=== PATIENT | male | born 1980 | race Caucasian/White ===

== ENCOUNTER 2020-03-21 02:52 | Emergency (ER) | payer OTHER ==
[2020-03-21 03:34] LABS: APPEARANCE,URINE CLOUDY; BILIRUBIN,URINE NEGATIVE (NEGATIVE); COLOR,URINE YELLOW; GLUCOSE, URINE NEGATIVE (NEGATIVE); KETONES,URINE TRACE mg/dL (NEGATIVE); LEUKOCYTE ESTERASE,URINE NEGATIVE (NEGATIVE); NITRITE,URINE NEGATIVE (NEGATIVE); PROTEIN,URINE NEGATIVE (NEGATIVE); URINE SPECIFIC GRAVITY 1.017
[2020-03-21 04:39] LABS: ABSOLUTE LYMPHOCYTES (AUTO) 0.9 10^3/uL (0.5-4.7); ABSOLUTE MONOCYTES (AUTO) 0.5 10^3/uL (0.1-1.4); ABSOLUTE NEUT (AUTO) 9.7 10^3/uL (1.7-8.2); BASOPHILS % (AUTO) 0.3 % (0-2); EOSINOPHILS % (AUTO) 0.2 % (0-6); HEMOGLOBIN 14.8 g/dL (13.5-17.0); LYMPHOCYTES % (AUTO) 8.1 % (13-45); MEAN CORPUSCULAR HEMOGLOBIN 32.7 pg (27.0-33.4); MEAN CORPUSCULAR HGB CONC 35.2 g/dL (32.0-36.0); MEAN CORPUSCULAR VOLUME 93 fl (80-97); MONOCYTES % (AUTO) 4.6 % (3-13); PLATELET COUNT 235 10^3/uL (150-450); RED BLOOD COUNT 4.52 10^6/uL (4.35-5.55); RED CELL DISTRIBUTION WIDTH 13.4 % (11.5-14.0); SEGMENTED NEUTROPHILS % (AUTO) 86.8 % (42-78); TOTAL CELLS COUNTED % (AUTO) 100 %; WHITE BLOOD COUNT 11.1 10^3/uL (4.0-10.5)
[2020-03-21 04:58] LABS: ALBUMIN 4.8 g/dL (3.5-5.0); ALKALINE PHOSPHATASE 74 U/L (38-126); ANION GAP 7 (5-19); ASPARTATE AMINO TRANSFERASE 22 U/L (17-59); BILIRUBIN,DIRECT 0.1 mg/dL (0.0-0.4); BILIRUBIN,TOTAL 0.9 mg/dL (0.2-1.3); BLOOD UREA NITROGEN 13 mg/dL (7-20); CALCIUM 9.7 mg/dL (8.4-10.2); CARBON DIOXIDE 31 mmol/L (22-30); CHLORIDE 102 mmol/L (98-107); GLUCOSE 103 mg/dL (75-110); POTASSIUM 4.2 mmol/L (3.6-5.0); TOTAL PROTEIN 7.8 g/dL (6.3-8.2)
--- NOTE | 2020-03-21 05:02 | ER Document Report ---
ED GI/ - General Chief Complaint: Abdominal Pain Stated Complaint: ABDOMINAL PAIN Time Seen by Provider: 03/21/20 04:47 Primary Care Provider: AVTAR HARMON PA-C [Primary Care Provider] - Follow up as needed CORA ADEN MD [ACTIVE STAFF] - Follow up as needed Mode of Arrival: Wheelchair Information source: Patient Notes: 39-year-old male with no previous medical problems presents to the emergency room complaining of worsening abdominal pain and cramping that started last night. Patient states he has been having "GI issues" since September. States is usually worse in the evening is intermittent decreased appetite states he finally established with a primary care physician last week who has ordered some labs which she states are still pending. He denies any fevers, no urinary symptoms. No diarrhea. No COVID-19 exposure. Has been using [id number] antacids with minimal relief. Does state that spicy foods seem to aggravate his symptoms. TRAVEL OUTSIDE OF THE [place] IN LAST 30 DAYS: No Past Medical History - General Information source: Patient - Social History Smoking Status: Never Smoker Frequency of alcohol use: None Drug Abuse: None Family History: Reviewed & Not Pertinent Review of Systems - Review of Systems Constitutional: No symptoms reported EENT: No symptoms reported Cardiovascular: No symptoms reported Respiratory: No symptoms reported Gastrointestinal: Abdominal pain, Nausea. denies: Diarrhea, Vomiting, Constipation Male Genitourinary: No symptoms reported Musculoskeletal: No symptoms reported Skin: No symptoms reported Neurological/Psychological: No symptoms reported -: Yes All other systems reviewed and negative Physical Exam - Vital signs Vitals: Temp Pulse Resp BP Pulse Ox 97.3 F 75 18 100/78 100 03/21/20 03:01 03/21/20 03:01 03/21/20 03:01 03/21/20 03:01 03/21/20 03:01 - General General appearance: Appears well, Alert In distress: Mild - HEENT Head: Normocephalic, Atraumatic Eyes: Normal Pupils: PERRL - Respiratory Respiratory status: No respiratory distress Chest status: Nontender Breath sounds: Normal Chest palpation: Normal - Cardiovascular Rhythm: Regular Heart sounds: Normal auscultation Murmur: No - Abdominal Inspection: Normal Distension: No distension Bowel sounds: Normal Tenderness: Nontender. No: McBurney's point, Varela's sign, Guarding Organomegaly: No organomegaly - Back Back: Normal, Nontender. No: CVA tenderness - Neurological Neuro grossly intact: Yes Cognition: Normal Orientation: AAOx4 [place] Coma Scale Eye Opening: Spontaneous Miguel Coma Scale Verbal: Oriented Miguel Coma Scale Motor: Obeys Commands [place] Coma Scale Total: 15 Speech: Normal Motor strength normal: LUE, RUE, LLE, RLE Sensory: Normal - Skin Skin Temperature: Warm Skin Moisture: Dry Skin Color: Normal Course - Re-evaluation Re-evalutation: 03/21/20 05:03 Patient is resting comfortably with decreased pain. Reviewed lab results with patient. CT abdomen pelvis IV contrast ordered. 03/21/20 06:25 Reviewed all test results with patient, staffed with my attending Dr. Weathers who recommends right upper quadrant ultrasound to confirm acute cholecystitis that w as documented on the CT. Patient remains pain-free, afebrile, stable labs. Patient is agreeable to have the ultrasound done. 03/21/20 07:38 Patient remains pain-free, pain-free on exam. Ultrasound was reviewed with patient. Case was staffed with my ED attending Dr. Weathers who agrees with plan for outpatient follow-up with general surgery discharge patient home. Discussed with patient need for outpatient follow-up with general surgery due to acute cholecystitis and cholelithiasis. He was counseled on diet restrictions avoid greasy food, fried food, no heavy sauces. He will be provided with on-call physician. Patient was given strict return to the emergency room guidelines. Return for any new or worsening symptoms. All questions were answered. Patient verbalized understanding and agrees with plan of care. 03/21/20 07:49 - Vital Signs Vital signs: Temp Pulse Resp BP Pulse Ox 98.1 F 79 18 106/73 98 03/21/20 06:16 03/21/20 06:16 03/21/20 06:16 03/21/20 06:16 03/21/20 06:16 - Laboratory Results Result Diagrams: 03/21/20 04:17 03/21/20 04:17 Laboratory Results Interpreted: 03/21/20 03/21/20 03/21/20 03:08 04:17 04:17 WBC 11.1 H Lymph % (Auto) 8.1 L Absolute Neuts (auto) 9.7 H Seg Neutrophils % 86.8 H Carbon Dioxide 31 H Urine Ketones TRACE H Urine Urobilinogen 4.0 H Critical Laboratory Results Reviewed: No Critical Results - Radiology Results Critical Radiology Results Reviewed: No Critical Results Discharge - Discharge Clinical Impression: Acute cholecystitis Condition: Stable Disposition: HOME, SELF-CARE Instructions: Gallbladder Disease ([facility]), Low-Fat Diet ([facility]) Additional Instructions: Avoid greasy foods, spicy foods, heavy sauces, fried foods. Outpatient follow- up with general surgery as discussed. Return to the emergency room for any new or worsening symptoms. Referrals: AVTAR HARMON PA-C [Primary Care Provider] - Follow up as needed CORA ADEN MD [ACTIVE STAFF] - Follow up as needed
--- NOTE | 2020-03-21 05:51 | RADIOLOGY REPORT (SQ) ---
CLINICAL HISTORY: abdominal pain COMPARISON: None. TECHNIQUE: CT ABDOMEN PELVIS WITH IV CONTRAST on 03/21/2020 5:02 AM CARDIOLOGY NURSE This exam was performed according to our departmental dose-optimization program, which includes automated exposure control, adjustment of the mA and/or kV according to patient size and/or use of iterative reconstruction technique. FINDINGS: Lower lungs are clear. Abdomen: The liver is normal in appearance. There is no biliary dilatation. The gallbladder wall is thickened measuring up to 7 mm. The pancreas and spleen are normal in appearance. The adrenal glands and kidneys are unremarkable. Abdominal aorta is normal in course and caliber without aneurysm. There is no free air. There is no retroperitoneal adenopathy. Pelvis: There is mild diverticulosis of the distal colon. Urinary bladder is unremarkable. There is no free fluid. Appendix is normal. Skeleton: There are no acute osseous findings. No suspicious bony lesions. IMPRESSION: Suspect acute cholecystitis.
[2020-03-21 06:16] VITALS: BP 106/73
--- NOTE | 2020-03-21 07:33 | RADIOLOGY REPORT (SQ) ---
Ultrasound of the right upper quadrant of the abdomen: 03/21/2020 6:30 AM FRANCHISE CONSULTANT Technique: Multiple grayscale color Doppler images of the right upper quadrant of the abdomen were obtained. Comparison: CT of abdomen and pelvis from 03/21/2020 History: 39-year old patient with right upper quadrant abdominal pain. Findings: The visualized portions of the hepatic parenchyma appears normal. There is normal direction of flow seen in the main portal vein. There is nonspecific gallbladder wall thickening with sludge and punctate cholelithiasis present. Trace pericholecystic fluid is also seen. Sonographic Varela's sign was negative. The common duct measures 3-4 mm. The right kidney measures up to 10.8 cm in length. The right kidney demonstrates normal cortical echogenicity with no evidence to suggest hydronephrosis. The visualized portions of the IVC, abdominal aorta, and pancreatic head appear normal. No free intraperitoneal fluid is seen. Impression: There is nonspecific gallbladder wall thickening with cholelithiasis and sludge present. Trace pericholecystic fluid is present. This could represent acute cholecystitis in the appropriate clinical setting.
== END 2020-03-21 07:53 | disposition home or self-care (01) ==
LOC: ER 02:52
DX: K81.0 Acute cholecystitis (principal); R10.9 Unspecified abdominal pain; R11.0 Nausea
CPT/HCPCS: 36415; 74177; 76705; 80053; 81001; 83690; 85025; 93976; 99285

== ENCOUNTER 2020-04-01 11:03 | Emergency (ER) | payer OTHER ==
[2020-04-01 12:17] LABS: ABSOLUTE EOSINOPHILS # (AUTO) 0.2 10^3/uL (0.0-0.6); ABSOLUTE LYMPHOCYTES (AUTO) 1.3 10^3/uL (0.5-4.7); ABSOLUTE MONOCYTES (AUTO) 0.5 10^3/uL (0.1-1.4); ABSOLUTE NEUT (AUTO) 3.1 10^3/uL (1.7-8.2); BASOPHILS % (AUTO) 0.7 % (0-2); EOSINOPHILS % (AUTO) 3.3 % (0-6); HEMATOCRIT 36.3 % (37.9-51.0); HEMOGLOBIN 13.2 g/dL (13.5-17.0); MEAN CORPUSCULAR HEMOGLOBIN 33.4 pg (27.0-33.4); MEAN CORPUSCULAR HGB CONC 36.3 g/dL (32.0-36.0); MEAN CORPUSCULAR VOLUME 92 fl (80-97); MONOCYTES % (AUTO) 9.1 % (3-13); PLATELET COUNT 197 10^3/uL (150-450); RED BLOOD COUNT 3.95 10^6/uL (4.35-5.55); RED CELL DISTRIBUTION WIDTH 13.2 % (11.5-14.0); SEGMENTED NEUTROPHILS % (AUTO) 61.9 % (42-78); TOTAL CELLS COUNTED % (AUTO) 100 %; WHITE BLOOD COUNT 5.1 10^3/uL (4.0-10.5)
--- NOTE | 2020-04-01 12:17 | EKG REPORT ---
SEVERITY:- BORDERLINE ECG - SINUS RHYTHM EARLY PRECORDIAL TRANSITION, ? ETIOLOGY : Confirmed by: Fransisco Sow MD 01-Apr-2020 12:16:22
[2020-04-01 12:23] LABS: ALBUMIN 3.7 g/dL (3.5-5.0); ALKALINE PHOSPHATASE 55 U/L (38-126); ANION GAP 5 (5-19); ASPARTATE AMINO TRANSFERASE 23 U/L (17-59); BILIRUBIN,DIRECT 0.3 mg/dL (0.0-0.4); BILIRUBIN,TOTAL 0.9 mg/dL (0.2-1.3); BLOOD UREA NITROGEN 15 mg/dL (7-20); CALCIUM 8.8 mg/dL (8.4-10.2); CARBON DIOXIDE 27 mmol/L (22-30); CHLORIDE 104 mmol/L (98-107); CREATINE KINASE 28 U/L (55-170); GLUCOSE 117 mg/dL (75-110); POTASSIUM 4.1 mmol/L (3.6-5.0); TOTAL PROTEIN 6.5 g/dL (6.3-8.2)
[2020-04-01 12:58] LABS: APPEARANCE,URINE CLEAR; BILIRUBIN,URINE NEGATIVE (NEGATIVE); COLOR,URINE YELLOW; GLUCOSE, URINE NEGATIVE (NEGATIVE); KETONES,URINE NEGATIVE (NEGATIVE); LEUKOCYTE ESTERASE,URINE NEGATIVE (NEGATIVE); NITRITE,URINE NEGATIVE (NEGATIVE); PROTEIN,URINE NEGATIVE (NEGATIVE); UROBILINOGEN,URINE NEGATIVE mg/dL (<2.0)
[2020-04-01] MEDS ORDERED: DEXTROSE 5%-LACTATED RINGERS 1,000 ML IV ONE (12:58)
[2020-04-01 15:00] VITALS: BP 134/68
--- NOTE | 2020-04-01 18:52 | ER Document Report ---
Entered by FAUSTO ZALDIVAR SCRIBE 04/01/20 1156 Acting as scribe for:CHRISTIANO HANNA MD ED General - General Chief Complaint: Near Syncope Stated Complaint: POSSIBLE SYNCOPE Time Seen by Provider: 04/01/20 11:08 Mode of Arrival: Ambulatory Information source: Patient Notes: This 39-year-old male patient comes emergency room complaining of syncopal episode. He reports he was driving to work when he developed dizziness with blurry vision. He also had felt a tingling sensation from head to toes. Once at work, he developed tingling, weakness, headache, he was sitting down and got hot and sweaty reporting waves of sweats. He then woke up on the floor. His father had helped him to the floor. He reviewed the incident on video from his security cameras at work. This is never happened before. At this time he does feel better. Past medical history is significant for a laparoscopic cholecystectomy on 03/22/2020. Today was his first day back to work. TRAVEL OUTSIDE OF THE [place] IN LAST 30 DAYS: No - Related Data Allergies/Adverse Reactions: shrimp Allergy (Mild, Verified 04/01/20 11:33) Home Medications: omprazole. pepcid. zyrtec Past Medical History - General Information source: Patient - Social History Smoking Status: Never Smoker Cigarette use (# per day): No Frequency of alcohol use: None Drug Abuse: None Lives with: Family Family History: Reviewed & Not Pertinent GI Medical History: Reports: Hx Gastroesophageal Reflux Disease Past Surgical History: Reports: Hx Cholecystectomy, Hx Oral Surgery, Hx Tonsillectomy Review of Systems - Review of Systems Constitutional: See HPI, Diaphoresis EENT: See HPI, Blurred vision Cardiovascular: See HPI, Syncope Respiratory: No symptoms reported Gastrointestinal: No symptoms reported Genitourinary: No symptoms reported Male Genitourinary: No symptoms reported Musculoskeletal: No symptoms reported Skin: No symptoms reported Hematologic/Lymphatic: No symptoms reported Neurological/Psychological: See HPI, Headaches, Tingling -: Yes All other systems reviewed and negative Physical Exam - Vital signs Vitals: Resp Pulse Ox 19 100 04/01/20 11:08 04/01/20 11:08 - Notes Notes: Physical Exam: General: Alert, appears well. HEENT: Normocephalic. Atraumatic. PERRL. Extraocular movements intact. Oropharynx clear. Minimal left lateral gaze nystagmus. Rapid head movement does not elicit dizziness. Neck: Supple. Non-tender. Respiratory: No respiratory distress. Clear and equal breath sounds bilaterally. Cardiovascular: Regular rate and rhythm. Abdominal: Normal Inspection. Non-tender. No distension. Normal Bowel Sounds. Back: No gross abnormalities. Extremities: Moves all four extremities. Upper extremities: Normal inspection. Normal ROM. Lower extremities: Normal inspection. No edema. Normal ROM. Neurological: Normal cognition. AAOx4. Normal speech. Psychological: Normal affect. Normal Mood. Skin: Warm. Dry. Normal color. Course - Vital Signs Vital signs: Temp Pulse Resp BP Pulse Ox 98.0 F 83 17 134/68 H 99 04/01/20 11:09 04/01/20 12:12 04/01/20 14:01 04/01/20 14:01 04/01/20 14:01 - Laboratory Results Result Diagrams: 04/01/20 11:17 04/01/20 11:17 Laboratory Results Interpreted: 04/01/20 04/01/20 11:17 11:17 RBC 3.95 L Hgb 13.2 L Hct 36.3 L MCHC 36.3 H Sodium 136.4 L Glucose 117 H Creatine Kinase 28 L Critical Laboratory Results Reviewed: No Critical Results - Radiology Results Critical Radiology Results Reviewed: No Critical Results - EKG Interpretation by Me EKG shows normal: Sinus rhythm, [place], Intervals, ST-T Waves. abnormal: QRS Complexes - Early precordial transition Rate: Normal - 77 Rhythm: NSR Discharge - Discharge Clinical Impression: Vasovagal syncope Condition: Stable Disposition: HOME, SELF-CARE Additional Instructions: Vasovagal Symptoms Your symptoms seem to be due to a fall in blood pressure, caused by the interaction of your nervous system with your circulatory system. This can result in abnormally slow pulse rate, faintness, abnormal sensations, low blood pressure, difficulty with vision, or fainting (syncope). Vasovagal symptoms may be brought on by emotional distress, pain, dehydration, bleeding, or medication effects. Often, no cause can be identified. Your exam has revealed no signs of a serious problem. Usually, no further tests are required. However, if further workup has been recommended it's important that you follow up as instructed. Should you feel lightheaded or "about to faint," you should sit or lie down as quickly as possible. The episode will usually pass. Recurring symptoms will require further evaluation to determine the cause. Call the physician if you develop severe prolonged dizziness, headache, chest pain, shortness of breath, or other new symptoms. Drink plenty of fluids throughout the day in the evening. Get plenty of rest. Do not drive, climb ladders, or other activities that put you at risk of injury if you have another fainting episode. Follow-up with your primary care provider for further evaluation if you have additional episodes of fainting or near fainting or any other symptoms. RETURN TO THE EMERGENCY ROOM IF ANY NEW OR WORSENING SYMPTOMS. I personally performed the services described in the documentation, reviewed and edited the documentation which was dictated to the scribe in my presence, and it accurately records my words and actions.
== END 2020-04-01 15:08 | disposition home or self-care (01) ==
LOC: ER 11:03
DX: R55 Syncope and collapse (principal); R42 Dizziness and giddiness; H53.8 Other visual disturbances; R53.1 Weakness; R20.0 Anesthesia of skin; R51.9 Headache, unspecified; R61 Generalized hyperhidrosis; Z90.49 Acquired absence of other specified parts of digestive tract; Z79.899 Other long term (current) drug therapy
CPT/HCPCS: 93005; 99284; 36415; 82550; 85025; 80053; 81001; 84484; 85379; 93010; J7121

== ENCOUNTER 2020-04-03 20:09 | Emergency (ER) | payer OTHER ==
--- NOTE | 2020-04-03 20:29 | ER Document Report ---
ED Medical Screen (RME) - General Chief Complaint: Abdominal Pain Stated Complaint: ABDOMINAL PAIN, SENSITIVE TO TOUCH Time Seen by Provider: 04/03/20 20:26 Notes: HPI: 39-year-old male recent cholecystectomy on March [address] Vaibhav chu with 2 days of nausea increasing sensitivity and discomfort in the mid abdomen. No definite fevers. Called his teledoctor today and was referred into the emergency department for evaluation PHYSICAL EXAMINATION: Surgical scars are intact without redness or drainage. Mild tenderness through the mid abdomen on palpation I have greeted and performed a rapid initial assessment of this patient. A comprehensive ED assessment and evaluation of the patient, analysis of test results and completion of medical decision making process will be conducted by an additional ED providers. Please note that clinical decision making for this patient was made during the 2019 pandemic of novel coronavirus which caused a significant strain on the healthcare system including at this particular facility. Criteria for admission discharge and level of care decisions as well as treatment decisions have necessarily changed TRAVEL OUTSIDE OF THE [place] IN LAST 30 DAYS: No - Related Data Allergies/Adverse Reactions: shrimp Allergy (Mild, Verified 04/01/20 11:33) Home Medications: omeprazole, pepsid, zertec Past Medical History - Social History Frequency of alcohol use: None Drug Abuse: None GI Medical History: Reports: Hx Gastroesophageal Reflux Disease Psychiatric Medical History: Denies: Hx Depression Past Surgical History: Reports: Hx Cholecystectomy, Hx Oral Surgery, Hx Tonsillectomy Physical Exam - Vital signs Vitals: Temp Pulse Resp BP Pulse Ox 97.9 F 63 16 118/77 99 04/03/20 20:17 04/03/20 20:17 04/03/20 20:17 04/03/20 20:17 04/03/20 20:17 Course - Vital Signs Vital signs: Temp Pulse Resp BP Pulse Ox 97.9 F 63 16 118/77 99 04/03/20 20:17 04/03/20 20:17 04/03/20 20:17 04/03/20 20:17 04/03/20 20:17
[2020-04-03] MEDS ORDERED: ONDANSETRON HCL INJ/PF 4 MG/2 ML SDV IV ONE (21:33)
[2020-04-03] MEDS ORDERED: NORMAL SALINE 1000 ML 1,000 ML IV ONE (21:33)
[2020-04-03 21:37] LABS: ABSOLUTE EOSINOPHILS # (AUTO) 0.2 10^3/uL (0.0-0.6); ABSOLUTE MONOCYTES (AUTO) 0.6 10^3/uL (0.1-1.4); ABSOLUTE NEUT (AUTO) 3.7 10^3/uL (1.7-8.2); BASOPHILS % (AUTO) 0.7 % (0-2); EOSINOPHILS % (AUTO) 2.4 % (0-6); HEMATOCRIT 37.7 % (37.9-51.0); HEMOGLOBIN 13.7 g/dL (13.5-17.0); LYMPHOCYTES % (AUTO) 30.6 % (13-45); MEAN CORPUSCULAR HEMOGLOBIN 33.8 pg (27.0-33.4); MEAN CORPUSCULAR HGB CONC 36.2 g/dL (32.0-36.0); MEAN CORPUSCULAR VOLUME 93 fl (80-97); MONOCYTES % (AUTO) 9.7 % (3-13); PLATELET COUNT 213 10^3/uL (150-450); RED BLOOD COUNT 4.04 10^6/uL (4.35-5.55); RED CELL DISTRIBUTION WIDTH 13.4 % (11.5-14.0); SEGMENTED NEUTROPHILS % (AUTO) 56.6 % (42-78); TOTAL CELLS COUNTED % (AUTO) 100 %; WHITE BLOOD COUNT 6.6 10^3/uL (4.0-10.5)
--- NOTE | 2020-04-03 21:41 | ER Document Report ---
Entered by FAUSTO ZALDIVAR SCRIBE 04/03/202129 Acting as scribe for:GUERLINE ASHFORD IV, MD ED GI/ - General Chief Complaint: Abdominal Pain Stated Complaint: ABDOMINAL PAIN, SENSITIVE TO TOUCH Time Seen by Provider: 04/03/20 20:26 Primary Care Provider: AVTAR HARMON PA-C [Primary Care Provider] - Follow up as needed Mode of Arrival: Ambulatory Information source: Patient Notes: This 39 year old male patient presents to the emergency department today with complaints of RUQ "sensitivity". Patient had a laparoscopic cholecystectomy on 03/21/2020. He was seen here 2 days ago for syncope that was thought to be due to poor fluid intake. Patient states he has been trying to drink more fluids and has not had any more syncopal events. Patient reports that he did not have any of this pain until yesterday and it "feels like a sunburn". He also complains of severe nausea without vomiting. TRAVEL OUTSIDE OF THE [place] IN LAST 30 DAYS: No - Related Data Allergies/Adverse Reactions: shrimp Allergy (Mild, Verified 04/01/20 11:33) Home Medications: omeprazole, pepsid, zertec Past Medical History - General Information source: Patient - Social History Smoking Status: Never Smoker Cigarette use (# per day): No Frequency of alcohol use: None Drug Abuse: None Lives with: Family Family History: Reviewed & Not Pertinent Patient has homicidal ideation: No GI Medical History: Reports: Hx Gastroesophageal Reflux Disease Past Surgical History: Reports: Hx Cholecystectomy, Hx Oral Surgery, Hx Tonsillectomy Review of Systems - Review of Systems Constitutional: No symptoms reported EENT: No symptoms reported Cardiovascular: denies: Syncope Respiratory: No symptoms reported Gastrointestinal: See HPI, Abdominal pain, Nausea Genitourinary: No symptoms reported Male Genitourinary: No symptoms reported Musculoskeletal: No symptoms reported Skin: No symptoms reported Hematologic/Lymphatic: No symptoms reported Neurological/Psychological: No symptoms reported -: Yes All other systems reviewed and negative Physical Exam - Vital signs Vitals: Temp Pulse Resp BP Pulse Ox 97.9 F 63 16 118/77 99 04/03/20 20:17 04/03/20 20:17 04/03/20 20:17 04/03/20 20:17 04/03/20 20:17 - Notes Notes: Physical Exam: General: Alert, appears well. HEENT: Normocephalic. Atraumatic. PERRL. Extraocular movements intact. Oropharynx clear. Neck: Supple. Non-tender. Respiratory: No respiratory distress. Clear and equal breath sounds bilaterally. Cardiovascular: Regular rate and rhythm. Abdominal: Tenderness to light palpation of the RUQ, no peritoneal signs. No distension. Normal Bowel Sounds. Back: No gross abnormalities. Extremities: Moves all four extremities. Upper extremities: Normal inspection. Normal ROM. Lower extremities: Normal inspection. No edema. Normal ROM. Neurological: Normal cognition. AAOx4. Normal speech. Psychological: Normal affect. Normal Mood. Skin: Warm. Dry. Normal color. Course - Re-evaluation Re-evalutation: 04/03/20 23:19 Differential diagnosis: Postop pain, biloma, postop infection, peritonitis 04/04/20 00:06 MDM: Based on the patient's history, exam, laboratory findings and CT scan findings, I believe the patient is just experiencing some typical postoperative discomfort that is not unexpected. Diagnosis, discharge medications and diet as well as follow-up discussed with patient and patient's . Findings of ED MSE discussed with patient and patient's . All questions were answered prior to discharge. Emergency signs and symptoms, reasons to return to the emergency department discussed with patient and patient's . - Vital Signs Vital signs: Temp Pulse Resp BP Pulse Ox 97.9 F 63 16 118/77 99 04/03/20 20:17 04/03/20 20:17 04/03/20 20:17 04/03/20 20:17 04/03/20 20:17 - Laboratory Results Result Diagrams: 04/03/20 21:20 04/03/20 21:20 Laboratory Results Interpreted: 04/03/20 21:20 RBC 4.04 L Hct 37.7 L MCH 33.8 H MCHC 36.2 H Critical Laboratory Results Reviewed: No Critical Results Attending or Supervising Physician who Reviewed Labs: GUERLINE ASHFORD IV - Radiology Results Critical Radiology Results Reviewed: No Critical Results Attending or Supervising Physician who Reviewed Radiology: GUERLINE ASHFORD IV Discharge - Discharge Clinical Impression: Postoperative pain Condition: Stable Disposition: HOME, SELF-CARE Additional Instructions: Return to the Emergency Department without delay if any worse. HOME CARE INSTRUCTIONS & INFORMATION: Thank you for choosing us for your medical needs. We hope you're satisfied with the care you received. After you leave, you must properly care for your problem and, at the same time, observe its progress. Any condition can change. Some illnesses can change rapidly over hours or days. If your condition worsens, return to the Emergency Department or see your physician promptly. ABOUT YOUR X-RAYS AND EKG'S: If you had an EKG or X-rays taken, they have been read by the Emergency Physician. The X-rays and EKG's will also be read by a R adiologist or Meat Apprentice within 24 hours. If discrepancies are noted, you will be notified by telephone. Please be certain the ED has a correct telephone number & address where you can be reached. Also, realize that some fractures or abnormalities do not show up on initial X-rays. If your symptoms continue, see your physician. ABOUT YOUR LABORATORY TEST: If you had laboratory tests, the results have been reviewed by the Emergency Physician. Some test results (for example cultures) may not be available for several days. You will be contacted if any test result shows you need additional treatment. Please be certain the ED has a correct telephone number and address where you can be reached. ABOUT YOUR MEDICATIONS: You will receive instructions on how to take your medicine on the prescription label you receive. Additional information may be provided by the Pharmacy. If you have questions afterwards, call the ED for clarification or further instructions. Some prescribed medications may cause drowsiness. Do not perform tasks such as driving a car or operating machinery without consulting your Pharmacist. If you feel you need a refill of pain medication, your condition will need re-evaluation. Please do not call for a refill of any medication. ABOUT YOUR SIGNATURE: Signature of this document acknowledges to followin. Understanding that you received emergency treatment and that you may be released before al medical problems are known or treated. Please be certain the ED has a correct phone number & address where you can be reached. 2. Acknowledgement that you will arrange for follow-up care as recommended. 3. Authorization for the Emergency Physician to provide information to your follow-up Physician in order to maximize your care. AT ANY TIME, IF YOUR SYMPTOMS CHANGE SIGNIFICANTLY OR WORSEN OR YOU DEVELOP NEW SYMPTOMS, RETURN TO THE EMERGENCY DEPARTMENT IMMEDIATELY FOR RE-EVALUATION. OUR GOAL IS TO PROVIDE EXCELLENT MEDICAL CARE! WE HOPE THAT WE HAVE MET YOUR EXPECTATIONS DURING YOUR EMERGENCY DEPARTMENT VISIT AND THAT YOU FEEL YOU HAVE RECEIVED EXCELLENT CARE! Prescriptions: Ondansetron [Zofran Odt 4 mg Tablet] 2 tab PO Q8H PRN #[id number] tab.rapdis PRN Reason: For Nausea/Vomiting Referrals: AISLINN GALVAN MD [ACTIVE STAFF] - 04/06/20 (Follow up with Dr. Galvan as scheduled) I personally performed the services described in the documentation, reviewed and edited the documentation which was dictated to the scribe in my presence, and it accurately records my words and actions.
[2020-04-03 22:10] LABS: ALBUMIN 3.9 g/dL (3.5-5.0); ALKALINE PHOSPHATASE 59 U/L (38-126); ANION GAP 7 (5-19); ASPARTATE AMINO TRANSFERASE 18 U/L (17-59); BILIRUBIN,DIRECT 0.2 mg/dL (0.0-0.4); BILIRUBIN,TOTAL 0.9 mg/dL (0.2-1.3); BLOOD UREA NITROGEN 10 mg/dL (7-20); CALCIUM 9.1 mg/dL (8.4-10.2); CARBON DIOXIDE 29 mmol/L (22-30); CHLORIDE 103 mmol/L (98-107); GLUCOSE 93 mg/dL (75-110); TOTAL PROTEIN 6.4 g/dL (6.3-8.2)
[2020-04-03 23:01] LABS: APPEARANCE,URINE CLEAR; BILIRUBIN,URINE NEGATIVE (NEGATIVE); COLOR,URINE YELLOW; GLUCOSE, URINE NEGATIVE (NEGATIVE); KETONES,URINE NEGATIVE (NEGATIVE); LEUKOCYTE ESTERASE,URINE NEGATIVE (NEGATIVE); NITRITE,URINE NEGATIVE (NEGATIVE); PROTEIN,URINE NEGATIVE (NEGATIVE); URINE SPECIFIC GRAVITY 1.009; UROBILINOGEN,URINE NEGATIVE mg/dL (<2.0)
--- NOTE | 2020-04-03 23:51 | RADIOLOGY REPORT (SQ) ---
EXAM DESCRIPTION: CT ABDOMEN PELVIS WITH IV CONTRAST COMPLETED DATE/TME: 04/03/2020 23:10 CLINICAL HISTORY: 39 years, Male, mid abd pain recent michael EXAM DESCRIPTION: CT ABD/PELVIS WITH IV ORAL CLINICAL HISTORY: mid abd pain recent michael COMPARISON: None Available TECHNIQUE: Contiguous axial images of the abdomen and pelvis were obtained after the administration of intravenous contrast followed by reconstruction images.This exam was performed according to our departmental dose-optimization program, which includes automated exposure control, adjustment of the mA and/or kV according to patient size and/or use of iterative reconstruction technique. FINDINGS: The liver, spleen, pancreas and kidneys are within normal limits. There is no hydronephrosis. The gallbladder is surgically absent. There is no evidence of postsurgical complication. Adrenal glands are within normal limits. Aorta is normal in caliber and tapering. No significant free fluid. No free air. No bowel obstruction. There is no stranding of the mesenteric fat. The appendix appears normal. No evidence of periappendiceal inflammation. IMPRESSION: No acute intra-abdominal abnormality
[2020-04-04] MEDS ORDERED: ONDANSETRON ODT 4 MG TAB (6 TAB/ER DISP) PO PRN (00:06)
[2020-04-04 00:12] VITALS: BP 116/79
--- OUTSIDE RECORDS SUMMARY | 2020-04-06 10:38 | XMS REPORT ---
:1980 Author [facility] Address [facility] [address] [place] [id number] Care Team Providers Name Role Phone Unavailable Unavailable Unavailable Allergies, Adverse Reactions, Alerts This patient has no known allergies or adverse reactions. Medications This patient has no known medications. Problems This patient has no known problems. Procedures This patient has no known procedures. Results Test Description Test Time Test Comments Text Results Atomic Results Result Comments CBC WITH DIFFERENTIAL/PLATELET Test Item Value Reference Range Comments WBC (test code = 6690-2) 6.1 X10E3/UL 3.4-10.8 RBC (test code = 789-8) 4.45 X10E6/UL 4.14-5.80 HEMOGLOBIN (test code = 718-7) 14.9 G/DL 13.0-17.7 HEMATOCRIT (test code = 4544-3) 43.5 % 37.5-51.0 MCV (test code = 787-2) 98 FL 79-97 MCH (test code = 785-6) 33.5 PG 26.6-33.0 MCHC (test code = 786-4) 34.3 G/DL 31.5-35.7 RDW (test code = 788-0) 12.2 % 11.6-15.4 PLATELETS (test code = 777-3) 236 X10E3/UL 150-450 NEUTROPHILS (test code = 770-8) 63 % LYMPHS (test code = 736-9) 25 % MONOCYTES (test code = 5905-5) 8 % EOS (test code = 713-8) 3 % BASOS (test code = 706-2) 1 % NEUTROPHILS (ABSOLUTE) (test code = 751-8) 3.8 X10E3/UL 1.4-7 .0 LYMPHS (ABSOLUTE) (test code = 731-0) 1.5 X10E3/UL 0.7-3.1 MONOCYTES(ABSOLUTE) (test code = 742-7) .5 X10E3/UL 0.1-0.9 EOS (ABSOLUTE) (test code = 711-2) .2 X10E3/UL 0.0-0.4 BASO (ABSOLUTE) (test code = 704-7) .1 X10E3/UL 0.0-0.2 IMMATURE GRANULOCYTES (test code = 82831-6) 0 % IMMATURE GRANS (ABS) (test code = 94353-4) 0 X10E3/UL 0.0-0 .1 COMP. METABOLIC PANEL (14) Test Item Value Reference Range Comments GLUCOSE (test code = 2345-7) 92 MG/DL 65-99 BUN (test code = 3094-0) 13 MG/DL 6-20 CREATININE (test code = 2160-0) .9 MG/DL 0.76-1.27 EGFR IF NONAFRICN AM (test code = 65084-1) 108 ML/MIN/1.73 >59 EGFR IF AFRICN AM (test code = 51031-5) 125 ML/MIN/1.73 >59 BUN/CREATININE RATIO (test code = 3097-3) 14 9-20 SODIUM (test code = 2951-2) 142 MMOL/L 134-144 POTASSIUM (test code = 2823-3) 4.2 MMOL/L 3.5-5.2 CHLORIDE (test code = 2075-0) 104 MMOL/L 96-106 CARBON DIOXIDE, TOTAL (test code = 2027-9) 25 MMOL/L 20-29 CALCIUM (test code = 23520-6) 9.4 MG/DL 8.7-10.2 PROTEIN, TOTAL (test code = 2885-2) 7 G/DL 6.0-8.5 ALBUMIN (test code = 1751-7) 4.7 G/DL 4.0-5.0 GLOBULIN, TOTAL (test code = 69633-8) 2.3 G/DL 1.5-4.5 A/G RATIO (test code = 1759-0) 2 1.2-2.2 BILIRUBIN, TOTAL (test code = 1975-2) .5 MG/DL 0.0-1.2 ALKALINE PHOSPHATASE (test code = 6768-6) 84 IU/L 39-117 AST (SGOT) (test code = 1920-8) 14 IU/L 0-40 ALT (SGPT) (test code = 1742-6) 20 IU/L 0-44 LIPID PANEL Test Item Value Reference Range Comments CHOLESTEROL, TOTAL (test code = 2093-3) 115 MG/DL 100-199 TRIGLYCERIDES (test code = 2571-8) 63 MG/DL 0-149 HDL CHOLESTEROL (test code = 2085-9) 48 MG/DL >39 VLDL CHOLESTEROL DEWAYNE (test code = 23357-3) 14 MG/DL 5-40 LDL CHOL CALC (NIH) (test code = 23431-1) 53 MG/DL 0-99 H PYLORI, IGM, IGG, IGA AB Test Item Value Reference Range Comments H. PYLORI, IGG ABS (test code = 5176-3) .16 INDEX VALUE 0.00-0.7 9 H. PYLORI, IGA ABS (test code = 7901-2) <9.0 UNITS 0.0-8.9 H PYLORI, IGM ABS (test code = 7903-8) <9.0 UNITS 0.0-8.9 HEMOGLOBIN A1C Test Item Value Reference Range Comments HEMOGLOBIN A1C (test code = 4548-4) 4.6 % 4.8-5.6 AMYLASE Test Item Value Reference Range Comments AMYLASE (test code = 1798-8) 56 U/L 31-110 LIPASE Test Item Value Reference Range Comments LIPASE (test code = 3040-3) 39 U/L 13-78 Social History This patient has no known social history. Vital Signs This patient has no known vital signs.
== END 2020-04-04 00:33 | disposition home or self-care (01) ==
LOC: ER 20:09
DX: G89.18 Other acute postprocedural pain (principal); R10.9 Unspecified abdominal pain; Z90.49 Acquired absence of other specified parts of digestive tract
CPT/HCPCS: 99285; 96361; 96374; 36415; 83690; 85025; 80053; 81001; 74177; J2405; J7030